=== PATIENT | male | born 1945 | race Caucasian/White ===

== ENCOUNTER 2017-09-15 14:29 | Emergency (ER) | payer SELFPAY ==
[~2017-09-15] VITALS: Ht 185.4 cm; Wt 88.5 kg
[~2017-09-15 14:29] MED LIST: ASCO500 PO; ASPI325EC PO; ASPI81EC; B-100 COMPLEX100 MG PO; CALCAVITD PO; CHLO25B PO; CLON1; CYCL10 PO; DOCU100 PO; FURO40 PO; GABA400 PO; GABA600 PO; HYDACE5325; HYDCHL12.5 PO; Hydrocodone-Ap1 EA20 PO; Hydrocodone-Ap1 EA23 PO; IBUP600 PO; LEVO750 PO; LEVSOD50 PO; Lopressor 50 mg50 MG PO; MORP15ER PO; MORP30ER PO; MORP60ER; Morphine Sulfat15 MG PO; Ms Contin30 MG PO; OLAN2.5; QUET200 PO; QUET300 PO; RANI150 PO; SILD50TA PO; THIA100 PO; TOCO1000 PO; VITB100; Ventolin5 MG/1 ML INH
== END 2017-09-15 16:36 | disposition home or self-care (01) ==
LOC: ER 14:29
DX: T84.021A Dislocation of internal left hip prosthesis, initial encounter (principal); Z96.642 Presence of left artificial hip joint; W01.0XXA Fall on same level from slipping, tripping and stumbling without subsequent striking against object, initial encounter; I48.91 Unspecified atrial fibrillation; J44.9 Chronic obstructive pulmonary disease, unspecified; I50.9 Heart failure, unspecified; E03.9 Hypothyroidism, unspecified; K21.9 Gastro-esophageal reflux disease without esophagitis; F43.10 Post-traumatic stress disorder, unspecified
CPT/HCPCS: 27250; 73501; 96361; 96374; 99152; 99283-25; J3010; J7030

== ENCOUNTER 2017-10-06 11:36 | Emergency (ER) | payer SELFPAY ==
[~2017-10-06] VITALS: Ht 182.9 cm; Wt 93.0 kg
== END 2017-10-06 14:39 | disposition home or self-care (01) ==
LOC: ER 11:36
DX: T84.021A Dislocation of internal left hip prosthesis, initial encounter (principal); I10 Essential (primary) hypertension; Z91.048 Other nonmedicinal substance allergy status; Z79.899 Other long term (current) drug therapy; Z79.82 Long term (current) use of aspirin; X50.1XXA Overexertion from prolonged static or awkward postures, initial encounter
CPT/HCPCS: 27250; 73501; 73502; 96374; 96375; 99152; 99284-25; J1170; J2405; J3010; J7030

== ENCOUNTER 2017-11-06 21:02 | Emergency (ER) | payer SELFPAY ==
[~2017-11-06] VITALS: Ht 182.9 cm; Wt 88.5 kg
== END 2017-11-06 23:34 | disposition home or self-care (01) ==
LOC: ER 21:02
DX: T84.021A Dislocation of internal left hip prosthesis, initial encounter (principal); I10 Essential (primary) hypertension; Z79.899 Other long term (current) drug therapy; Z79.51 Long term (current) use of inhaled steroids; Z91.048 Other nonmedicinal substance allergy status; Z79.82 Long term (current) use of aspirin
CPT/HCPCS: 27265; 36415; 73501; 73502; 96374; 96375; 99284-25; J1170; J1885; J3010

== ENCOUNTER 2019-08-21 16:03 | Emergency (ER) | payer OTHER ==
[~2019-08-21] VITALS: Ht 182.9 cm; Wt 90.7 kg
[~2019-08-21 16:03] MED LIST changes: +Norco 10-325 T1 EACH PO; +Prinivil10 MG
== END 2019-08-21 18:59 | disposition home or self-care (01) ==
LOC: ER 16:03
DX: M24.451 Recurrent dislocation, right hip (principal); I10 Essential (primary) hypertension; Z91.048 Other nonmedicinal substance allergy status; Z79.899 Other long term (current) drug therapy
CPT/HCPCS: 27250; 73501; 73502; 96374-59; 96376-59; 99152; 99284-25; J2270; J2704; J7030

== ENCOUNTER 2021-09-03 13:59 | Inpatient (IN) | payer OTHER ==
[~2021-09-03] VITALS: Ht 180.3 cm; Wt 79.4 kg
[~2021-09-03 13:59] MED LIST changes: -CALCAVITD PO; +CALCIUM 250-VI1 EAC1 PO; +LEVSOD100 PO; -LEVSOD50 PO; -MORP15ER PO; -Prinivil10 MG; +Prinivil10 MG PO
[2021-09-03 14:35] LABS: BASOPHILS ABSOLUTE AUTO 0.01 K/mm3 (0.00-0.23); BASOPHILS PERCENT AUTO 0 % (0-2); EOSINOPHILS PERCENT AUTO 0 % (0-6); Hematocrit 34.7 % (37.0-53.0); Hemoglobin 11.7 g/dL (13.5-17.5); IMMATURE GRAN ABSOLUTE AUTO 0.02 K/mm3 (0.00-0.10); IMMATURE GRAN PERCENT AUTO 0 % (0-1); LYMPHOCYTES ABSOLUTE AUTO 0.55 K/mm3 (0.84-5.20); LYMPHOCYTES PERCENT AUTO 10 % (21-46); MONOCYTES ABSOLUTE AUTO 0.39 K/mm3 (0.16-1.47); MONOCYTES PERCENT AUTO 7 % (4-13); Mean Corpuscular HGB 30.2 pg (26.0-34.0); Mean Corpuscular HGB Conc 33.7 g/dL (31.5-36.5); Mean Corpuscular Volume 90 fL (80-100); Mean Platelet Volume 9.3 fL (9.1-12.4); NEUTROPHILS ABSOLUTE AUTO 4.72 K/mm3 (1.96-9.15); NEUTROPHILS PERCENT AUTO 83 % (41-73); Platelet Count 143 K/mm3 (150-400); RDW Coefficient Variation 12.4 % (11.7-14.2); RDW Standard Deviation 40.8 fL (35.1-46.3); Red Blood Cell Count 3.87 M/mm3 (4.30-5.90); White Blood Cell Count 5.69 K/mm3 (4.00-11.30)
[2021-09-03 15:22] LABS: Bilirubin, Total 0.4 mg/dL (0.1-1.0); Bun/Creatinine Ratio 32.8 (12.0-20.0); Calcium, Blood 8.7 mg/dL (8.5-10.1); Creatinine, Blood 0.55 mg/dL (0.60-1.20); Globulin, Blood 2.9 g/dL (2.2-4.0); Potassium, Blood 4.1 mmol/L (3.5-5.5); Total Protein, Blood 5.9 g/dL (6.4-8.2)
[2021-09-04 06:13] LABS: BASOPHILS ABSOLUTE AUTO 0.01 K/mm3 (0.00-0.23); BASOPHILS PERCENT AUTO 0 % (0-2); EOSINOPHILS ABSOLUTE AUTO 0.03 K/mm3 (0.00-0.68); EOSINOPHILS PERCENT AUTO 0 % (0-6); Hemoglobin 12.1 g/dL (13.5-17.5); IMMATURE GRAN ABSOLUTE AUTO 0.03 K/mm3 (0.00-0.10); IMMATURE GRAN PERCENT AUTO 0 % (0-1); LYMPHOCYTES ABSOLUTE AUTO 0.62 K/mm3 (0.84-5.20); LYMPHOCYTES PERCENT AUTO 8 % (21-46); MONOCYTES ABSOLUTE AUTO 0.67 K/mm3 (0.16-1.47); MONOCYTES PERCENT AUTO 9 % (4-13); Mean Corpuscular HGB 30.1 pg (26.0-34.0); Mean Corpuscular HGB Conc 33.6 g/dL (31.5-36.5); Mean Corpuscular Volume 90 fL (80-100); Mean Platelet Volume 9.4 fL (9.1-12.4); NEUTROPHILS ABSOLUTE AUTO 6.11 K/mm3 (1.96-9.15); NEUTROPHILS PERCENT AUTO 82 % (41-73); Platelet Count 151 K/mm3 (150-400); RDW Coefficient Variation 12.4 % (11.7-14.2); Red Blood Cell Count 4.02 M/mm3 (4.30-5.90); White Blood Cell Count 7.47 K/mm3 (4.00-11.30)
[2021-09-04 06:21] LABS: Albumin, Blood 2.7 g/dL (3.4-5.0); Albumin/Globulin Ratio 0.9 (0.8-1.8); Bilirubin, Total 0.5 mg/dL (0.1-1.0); Calcium, Blood 8.4 mg/dL (8.5-10.1); Creatinine, Blood 0.57 mg/dL (0.60-1.20); Potassium, Blood 3.8 mmol/L (3.5-5.5); Total Protein, Blood 5.7 g/dL (6.4-8.2)
--- NOTE | 2021-09-04 10:12 | NUR ---
PT ARRIVED TO ROOM BY LUIS CARLOS FROM ED TO 343. SLIDE TRANSFERRED TO BED AND SETTLED IN. DRESSING INTACT TO R HIP. REPORTS SIGNIFICANT PAIN TO L ABDOMEN. STATES CHRONIC PAIN TO JOINTS AND BACK FROM MULTIPLE SURGERIES. HAS HAD NO BM SINCE ARRIVAL TO HOSPITAL.
--- NOTE | 2021-09-04 18:15 | NUR ---
SHIFT SUMMARY PT REPORTS POOR APPETITE AND NOT INTERESTED IN FOOD WHEN LUNCH ARRIVED. HAS HAD NO BM SINCE ARRIVAL TO FLOOR. REPORTS ONGOING L SIDE ABDOMENAL PAIN. REPORTS HE FEELS LIKE HE IS GETTING BETTER SLEEP NOW THAT HE IS HERE AND HAS BEEN SLEEPING ON AND OFF THROUGH THE DAY. SPOKE WITH GI OFFICE AND PT WAS NEVER SEEN IN ED BY GI NOR A CONSULT CALLED WHILE IN ED. HOSPITALIST AWARE THIS. PT HAS BEEN NOTIFIED WELL AND OK WITH NO PLAN FOR COLONOSCOPY IN NEXT FEW DAYS. STATES PAIN TO L ABDOMEN IS A CRAMPING PAIN. DRESSING CHANGED TO R HIP WITH NO REDNESS NOTED. BRUISING AND MILD SWELLING ONLY.
--- NOTE | 2021-09-05 04:41 | NUR ---
SHIFT SUMMARY A/OX4, SBA TO BSC/CHAIR. ABD SOFT, TENDER. C/O 09/20 PAIN, MEDICATED PER EMAR. NO BM THIS SHIFT. VSS, NO ACUTE CHANGES AT THIS TIME. BED IN LOWEST POSITION WITH CALL LIGHT IN REACH. WILL CONTINUE TO MONITOR AND REPORT TO ONCOMING RN.
[2021-09-05 08:19] LABS: BASOPHILS ABSOLUTE AUTO 0.02 K/mm3 (0.00-0.23); BASOPHILS PERCENT AUTO 0 % (0-2); EOSINOPHILS ABSOLUTE AUTO 0.11 K/mm3 (0.00-0.68); EOSINOPHILS PERCENT AUTO 2 % (0-6); Hematocrit 32.7 % (37.0-53.0); Hemoglobin 10.8 g/dL (13.5-17.5); IMMATURE GRAN ABSOLUTE AUTO 0.09 K/mm3 (0.00-0.10); IMMATURE GRAN PERCENT AUTO 1 % (0-1); LYMPHOCYTES ABSOLUTE AUTO 0.85 K/mm3 (0.84-5.20); LYMPHOCYTES PERCENT AUTO 11 % (21-46); MONOCYTES ABSOLUTE AUTO 0.55 K/mm3 (0.16-1.47); MONOCYTES PERCENT AUTO 7 % (4-13); Mean Corpuscular HGB 29.8 pg (26.0-34.0); Mean Corpuscular Volume 90 fL (80-100); Mean Platelet Volume 9.4 fL (9.1-12.4); NEUTROPHILS ABSOLUTE AUTO 5.89 K/mm3 (1.96-9.15); NEUTROPHILS PERCENT AUTO 78 % (41-73); Platelet Count 138 K/mm3 (150-400); RDW Coefficient Variation 12.6 % (11.7-14.2); RDW Standard Deviation 42.1 fL (35.1-46.3); Red Blood Cell Count 3.62 M/mm3 (4.30-5.90); White Blood Cell Count 7.51 K/mm3 (4.00-11.30)
[2021-09-05 08:27] LABS: Bun/Creatinine Ratio 18.7 (12.0-20.0); Calcium, Blood 8.4 mg/dL (8.5-10.1); Creatinine, Blood 0.64 mg/dL (0.60-1.20); Potassium, Blood 3.9 mmol/L (3.5-5.5)
[2021-09-05 16:15] LABS: Hematocrit 33.8 % (37.0-53.0); Hemoglobin 11.1 g/dL (13.5-17.5)
--- NOTE | 2021-09-05 17:29 | NUR ---
SHIFT SUMMARY- PT ALERT AND ORIENTED 1P SBA TO THE CHAIR. PT SAT IN THE CHAIR THIS AFTERNOON AND THEN CALLED IN A PANICK LATER STATING 9/10 PAIN IN HIS RIGHT KNEE. HE DESCRIBED A PAIN THAT SEEMED LIKE MUSCLE SPASAM, MEDICATED WITH FLEXERIL AND DILAUDID AFTER PT WAS ASSISTED BACK TO BED. PT STATED UPON FOLLOW UP THAT THE PAIN WAS IMPROVING. PT HAS AN ORDER FOR STL COLLECTION, HE HAS HAD NO BM TODAY, WHEN TRANSFERED TO THE BED FROM THE CHAIR, THE WEN HAD A BURGUNDY SMEAR IN IT. IS AWARE THESE ARE HAPPENING, NO SAMPLE ACHIEVED D/T NO ACTUAL STOOL. PT CURRENTLY IN BED, CALL LIGHT IN REACH IV ABX INFUSING THROUGH IV IN RIGHT NECK. PT DID NOT HAVE ANY ACUTE EVENTS T/O THE DAY. WILL CTM AND PASS ON TO NIGHT RN IN BEDSIDE REPORT. PT CURRENTLY ON A CLEAR LIQUID DIET, SEEMS TO BE TOLLERATING IT FAIRLY WELL.
--- NOTE | 2021-09-06 04:45 | NUR ---
SHIFT SUMMARY PT CONTINUES TO REPORT ABD DISCOMFORT AND PAIN TO R SHOULDER, HIP, AND KNEE. MEDICATED PER EMAR. DENIED ANY NAUSEA THIS EVENING. NO BOWEL MOVEMENT THIS SHIFT. VOIDING WELL, URINE DARK. PT SLEPT OFF AND ON THROUGHOUT THE NIGHT. REMAINED IN BED THROUGHOUT THE NIGHT. VITAL SIGNS STABLE. WILL CONTINUE TO MONITOR.
[2021-09-06 05:17] LABS: Hematocrit 28.2 % (37.0-53.0); Hemoglobin 9.6 g/dL (13.5-17.5); Mean Corpuscular HGB 30.4 pg (26.0-34.0); Mean Corpuscular Volume 89 fL (80-100); Mean Platelet Volume 9.6 fL (9.1-12.4); Platelet Count 142 K/mm3 (150-400); RDW Coefficient Variation 12.6 % (11.7-14.2); RDW Standard Deviation 42.3 fL (35.1-46.3); Red Blood Cell Count 3.16 M/mm3 (4.30-5.90); White Blood Cell Count 5.93 K/mm3 (4.00-11.30)
[2021-09-06 06:06] LABS: BAND PERCENT MAN 6 % (0-8); BASOPHILS PERCENT MAN 0 % (0-2); EOSINOPHILS ABSOLUTE MAN 0.05 K/mm3 (0.00-0.68); EOSINOPHILS PERCENT MAN 1 % (0-6); LYMPHOCYTES ABSOLUTE MAN 0.83 K/mm3 (0.84-5.20); LYMPHOCYTES PERCENT MAN 14 % (21-46); MONOCYTES ABSOLUTE MAN 0.17 K/mm3 (0.16-1.47); MONOCYTES PERCENT MAN 3 % (4-13); NEUTROPHILS ABSOLUTE MAN 4.86 K/mm3 (1.96-9.15); SEG NEUTROPHILS PERCENT MAN 76 % (41-73); TOTAL CELLS COUNTED 100
[2021-09-06 06:15] LABS: Bun/Creatinine Ratio 16.6 (12.0-20.0); Calcium, Blood 7.8 mg/dL (8.5-10.1); Creatinine, Blood 0.6 mg/dL (0.60-1.20); Potassium, Blood 3.9 mmol/L (3.5-5.5)
--- NOTE | 2021-09-06 08:44 | NUR ---
[facility] RE-FAXED FOR WEIGHT BEARING STATUS.
--- NOTE | 2021-09-06 17:15 | NUR ---
SHIFT SUMMARY- PT A/OX4, 1 ASSIST UP TO CHAIR/ BSC. PT REPORTS 9/10 PAIN TO LEFT ABD WELL CHRONIC PAIN TO SHOULDERS/HIPS HOWEVER PT HAS SLEPT ON AND OFF AND DOES NOT APPEAR TO BE IN ANY DISTRESS. PRN NORCO GIVEN AND LONG ACTING MORPHINE SCHEDULED TO TID. LS CLEAR, ON ROOM AIR. 1+ SWELLING TO BUE, ARMS ELEVATED ON PILLOWS AND APPEARS TO BE IMPROVED THIS EVENING. PT REPORT LEFT ABD PAIN, STATES NOT PASSING GAS BUT DID HAVE A LIQUID STOOL THIS AFTERNOON BUT WAS MIXED WITH URINE SO UNABLE TO SEND A STOOL SAMPLE. IV LEVSIN APPEARS TO BE HELPING WITH ABDOMINAL CRAMPING. PT CONTINUES TO CLEAR LIQUID DIET, POOR ORAL INTAKE. LR AT 75ML/HR INFUSING. AQUACEL DRESSING TO RIGHT HIP IN PLACE, C/D/I FROM RECENT HIP SURGERY. PER [facility] PT IS WEIGHT BEARING TOLERATED. POWERGLIDE PLACED TO AMBER. NO OTHER ACUTE CHANGES THIS SHIFT.
--- NOTE | 2021-09-07 04:21 | NUR ---
SHIFT SUMMARY PATIENT HAD NO ACUTE CHANGES. REPORTED ABDOMINAL CRAMPING X TWO AND NORCO GIVEN PER EMAR. IV LEVSIN 0.25MG CHANGED TO PO 0.[address] OTTO WITH PHARMACY REPORTING OUT OF IV FORM. GIVEN X ONE FOR ABDOMINAL CRAMPING. SCHEDULE MS CONTIN 30 MG FOR PAIN MANAGEMENT. POWERGLIDE AMBER INTACT. LR INFUSING AT 75mL/HR. IV ABX INFUSED. DENIES SOB AND N/V. BUE ELEVATED ON PILLOWS WITH 1+ EDEMA. VSS/AFEBRILE. CALL LIGHT IN REACH. BED IN LOWEST POSITION. WILL CONTINUE TO MONITOR UNTIL DAY SHIFT NURSE ASSUMES CARE.
[2021-09-07 05:56] LABS: BASOPHILS ABSOLUTE AUTO 0.01 K/mm3 (0.00-0.23); BASOPHILS PERCENT AUTO 0 % (0-2); EOSINOPHILS ABSOLUTE AUTO 0.18 K/mm3 (0.00-0.68); EOSINOPHILS PERCENT AUTO 4 % (0-6); Hematocrit 28.4 % (37.0-53.0); Hemoglobin 9.3 g/dL (13.5-17.5); IMMATURE GRAN ABSOLUTE AUTO 0.03 K/mm3 (0.00-0.10); IMMATURE GRAN PERCENT AUTO 1 % (0-1); LYMPHOCYTES ABSOLUTE AUTO 0.87 K/mm3 (0.84-5.20); LYMPHOCYTES PERCENT AUTO 17 % (21-46); MONOCYTES ABSOLUTE AUTO 0.37 K/mm3 (0.16-1.47); MONOCYTES PERCENT AUTO 7 % (4-13); Mean Corpuscular HGB 29.6 pg (26.0-34.0); Mean Corpuscular HGB Conc 32.7 g/dL (31.5-36.5); Mean Corpuscular Volume 90 fL (80-100); Mean Platelet Volume 9.3 fL (9.1-12.4); NEUTROPHILS ABSOLUTE AUTO 3.55 K/mm3 (1.96-9.15); NEUTROPHILS PERCENT AUTO 71 % (41-73); Platelet Count 163 K/mm3 (150-400); RDW Coefficient Variation 12.9 % (11.7-14.2); RDW Standard Deviation 42.5 fL (35.1-46.3); Red Blood Cell Count 3.14 M/mm3 (4.30-5.90); White Blood Cell Count 5.01 K/mm3 (4.00-11.30)
[2021-09-07 06:13] LABS: Bun/Creatinine Ratio 15.2 (12.0-20.0); Calcium, Blood 7.9 mg/dL (8.5-10.1); Creatinine, Blood 0.59 mg/dL (0.60-1.20); Potassium, Blood 3.5 mmol/L (3.5-5.5)
[2021-09-07] MEDS ORDERED: FURO40 PO (11:02)
[2021-09-07] MEDS ORDERED: Mucus Relief400 MG PO ×2 (11:03)
[2021-09-07] MEDS ORDERED: MULTI-VITAMIN1 EAC2 PO ×2 (11:41)
[2021-09-07 13:11] LABS: ANTIMYELOPEROXIDASE (MPO) ABS <0.2 units (0.0-0.9); ANTIPROTEINASE 3 (PR-3) ABS <0.2 units (0.0-0.9); ATYPICAL PANCA <1:20 titer (Neg:<1:20); CYTOPLASMIC (C-ANCA) <1:20 titer (Neg:<1:20); PERINUCLEAR (P-ANCA) <1:20 titer (Neg:<1:20)
--- NOTE | 2021-09-07 16:46 | NUR ---
SHIFT SUMMARY- PT A/O X4, SBA UP INTO CHAIR. PT REPORTS 7/10 LEFT ABDOMINAL PAIN WELL CHRONIC LEG, SHOULDER, KNEE PAIN. LS CLEAR, ON RA. HRR. PT TOLERATING FULL LIQUID DIET, PT TO ADVANCE TO SOFT DIET FOR BREAKFAST. PT REPORTS ABDOMINAL PAINFUL AND TENDER TO LEFT SIDE, PASSING GAS, NO N/V. NO BM'S TODAY. LEVSIN HELPING WITH ABDOMINAL CRAMPING. PT REFUSED THERAPY TODAY, AQUACEL DRESSING TO RIGHT HIP C/D/I. PT SLEEPS ON AND OFF T/O THE DAY BUT AWAKENS EASILY. NO OTHER ACUTE CHANGE THIS SHIFT. POSSIBLE D/C HOME TOMORROW.
--- NOTE | 2021-09-07 19:14 | NUR ---
PT REPORTED FEELING NAUSEOUS PRIOR TO EATING DINNER, PT DID EAT ALL OF HIS FULL LIQUID LUNCH. DR FALL NOTIFIED, PETER MALIN ORDERED AND PT PUT BACK ON FULL LIQUID DIET FOR BREAKFAST.
[2021-09-08 05:13] LABS: BASOPHILS ABSOLUTE AUTO 0.01 K/mm3 (0.00-0.23); BASOPHILS PERCENT AUTO 0 % (0-2); EOSINOPHILS ABSOLUTE AUTO 0.19 K/mm3 (0.00-0.68); EOSINOPHILS PERCENT AUTO 4 % (0-6); Hematocrit 28.9 % (37.0-53.0); Hemoglobin 9.4 g/dL (13.5-17.5); IMMATURE GRAN ABSOLUTE AUTO 0.08 K/mm3 (0.00-0.10); IMMATURE GRAN PERCENT AUTO 2 % (0-1); LYMPHOCYTES ABSOLUTE AUTO 0.82 K/mm3 (0.84-5.20); LYMPHOCYTES PERCENT AUTO 15 % (21-46); MONOCYTES ABSOLUTE AUTO 0.43 K/mm3 (0.16-1.47); MONOCYTES PERCENT AUTO 8 % (4-13); Mean Corpuscular HGB 29.6 pg (26.0-34.0); Mean Corpuscular HGB Conc 32.5 g/dL (31.5-36.5); Mean Corpuscular Volume 91 fL (80-100); Mean Platelet Volume 9.7 fL (9.1-12.4); NEUTROPHILS ABSOLUTE AUTO 3.78 K/mm3 (1.96-9.15); NEUTROPHILS PERCENT AUTO 71 % (41-73); Platelet Count 200 K/mm3 (150-400); RDW Coefficient Variation 12.6 % (11.7-14.2); RDW Standard Deviation 42.4 fL (35.1-46.3); Red Blood Cell Count 3.18 M/mm3 (4.30-5.90); White Blood Cell Count 5.31 K/mm3 (4.00-11.30)
--- NOTE | 2021-09-08 06:14 | NUR ---
SMOG TECHNICIAN SUMMARY ADMITTED FOR ENTEROCOLITIS. PT IS A FULL CODE. HE REPORTS CONTINUOUS LLQ PAIN, MORE LIKE CRAMPING. MEDICATED WITH LEVSIN X2, FLEXERIL X1, AND SCHEDULED MS CONTIN. PT REPORTS FEELING SOMEWHAT COMFORTABLE THIS MORNING. HE HAS BEEN USING THE URINAL INDEPENDENTLY. ABLE TO DRINK BUT WANTS TO TRY EATING SOMETHING SOLID FOR BREAKFAST. STILL RECEIVING IV ABX AND LR AT 75 ML/HR. NO OTHER CONCERNS.
[2021-09-08] MEDS ORDERED: MASOPHEN325 M3 PO ×2 (13:56)
[2021-09-08] MEDS ORDERED: Norco 5-325 Ta1 EACH PO ×2 (13:57)
[2021-09-08] MEDS ORDERED: AMOCLA500 PO ×2 (13:57)
[2021-09-08] MEDS ORDERED: EUTHYROX125 MCG PO ×2 (13:58)
[2021-09-08] MEDS ORDERED: HYOS.125 SL (13:58)
[2021-09-08] MEDS ORDERED: Prinivil10 MG PO (14:05)
[2021-09-08] MEDS ORDERED: METR500 ×2 (14:05)
[2021-09-08] MEDS ORDERED: VISBIOME 112.51 EACH PO (14:06)
[2021-09-08] MEDS ORDERED: MORP30ER PO ×2 (14:06)
--- NOTE | 2021-09-08 15:30 | NUR ---
This morning patient had soft food for breakfast, c/o staff that he did not tolerate advancing diet. Dieticin recommned downgrading patient to clears for lunch. Patient upset said that he never said that, and wanted to leave and be discharge. Patient unreceptive to education, MD said that CT was WNL. MD at bedside, updated patient & granddaughter. Reviewed discharge education, patient verbalized understanding. Vitals stable. Removed midline cath, site WNL catheter tip intact. Patient left unit at 1500.
== END 2021-09-08 14:51 | disposition home health service (06) | DRG 386 ==
LOC: ER 13:59 → ERHOLD 19:59 → MEDS 09-04 07:56
PROVIDERS: Emergency Medicine; Family Medicine; Internal Medicine; ADMIT Internal Medicine
DX: K51.00 Ulcerative (chronic) pancolitis without complications (principal); K92.2 Gastrointestinal hemorrhage, unspecified; I10 Essential (primary) hypertension; G89.4 Chronic pain syndrome; E03.9 Hypothyroidism, unspecified; D63.8 Anemia in other chronic diseases classified elsewhere; M54.50 Low back pain, unspecified; Z96.643 Presence of artificial hip joint, bilateral; Z87.828 Personal history of other (healed) physical injury and trauma; Z98.890 Other specified postprocedural states; Z91.048 Other nonmedicinal substance allergy status; Z79.899 Other long term (current) drug therapy; Z79.891 Long term (current) use of opiate analgesic; Z79.82 Long term (current) use of aspirin
CPT/HCPCS: 36415; 74177; 80048; 80053; 82272; 83516; 83520; 83605; 85014; 85018; 85025; 86037; 93005; 93010; 96365; 96374-59; 96375; 96376; 97110; 97116; 97163; 97530; 99285-25; A9270; C1751; G0378; J0696; J1170; J1980; J2270; J7040; J7120; Q9967

== ENCOUNTER 2021-09-10 00:08 | Inpatient (IN) | payer OTHER ==
[~2021-09-10] VITALS: Ht 177.8 cm; Wt 87.1 kg
[~2021-09-10 00:08] MED LIST changes: +AMOCLA500 PO; +EUTHYROX125 MCG PO; +HYOS.125 SL; +MASOPHEN325 M3 PO; +METR500; +MULTI-VITAMIN1 EAC2 PO; +Mucus Relief400 MG PO; +Norco 5-325 Ta1 EACH PO; +VISBIOME 112.51 EACH PO
[2021-09-10] MEDS ORDERED: MELATONIN5 M1 PO ×2 (05:16)
[2021-09-10 06:30] LABS: Bun/Creatinine Ratio 17.5 (12.0-20.0); Calcium, Blood 8.1 mg/dL (8.5-10.1); Creatinine, Blood 0.63 mg/dL (0.60-1.20); Potassium, Blood 4.1 mmol/L (3.5-5.5)
--- NOTE | 2021-09-10 19:23 | NUR ---
SHIFT SUMMARY: NO ACUTE EVENTS. C/O CHRONIC BACK, HIP, AND SHOULDER PAIN; ALSO HAVING ACUTE LLQ PAIN. MEDICATED PER EMAR, BUT HE STATES HIS PAIN NEVER GOES BELOW 7/10. LBM 09/08/21. IS NPO, TOLERATING ICE CHIPS, DENIES NAUSEA. HE DOES NOT LIKE THE L EJ IV SITE; ATTEMPTED TO PLACE PERIPHERAL IV, BUT UNABLE TO DO SO. THIS AUTHOR NOTIFIED DIAGRAM CLERK THAT HE MAY NEED POWERGLIDE PLACED. USING URINAL INDEPENDENTLY.
--- NOTE | 2021-09-11 05:27 | NUR ---
SHIFT SUMMARY: PT IS ALERT AND ORIENTED. PT IS CALM AND COOPERATIVE WITH CARE. PT CALLS APPROPRIATELY. PT IN ON BED REST, NOT OUT OF BED OVERNIGHT, USES THE URINAL INDEPENDENTLY. PT REPORTS CHRONIC PAIN ON SEVERAL OCCASIONS, MEDICATING PER EMAR. PT DENIES NAUSEA, VOMITING, AND SOB. PT SLEPT MUCH OF THE NIGHT WHEN NOT DISTURBED. NPO ORDERED, FLUIDS RUNNING ORDERED. NO ACUTE CHANGES OVERNIGHT. BED IN LOW POSITION, CALL LIGHT WITHIN REACH. WILL REPORT TO DAY NURSE.
[2021-09-11 11:24] LABS: BASOPHILS ABSOLUTE AUTO 0.01 K/mm3 (0.00-0.23); BASOPHILS PERCENT AUTO 0 % (0-2); EOSINOPHILS ABSOLUTE AUTO 0.15 K/mm3 (0.00-0.68); EOSINOPHILS PERCENT AUTO 2 % (0-6); Hematocrit 29.5 % (37.0-53.0); Hemoglobin 9.8 g/dL (13.5-17.5); IMMATURE GRAN ABSOLUTE AUTO 0.08 K/mm3 (0.00-0.10); IMMATURE GRAN PERCENT AUTO 1 % (0-1); LYMPHOCYTES ABSOLUTE AUTO 1.08 K/mm3 (0.84-5.20); LYMPHOCYTES PERCENT AUTO 17 % (21-46); MONOCYTES ABSOLUTE AUTO 0.48 K/mm3 (0.16-1.47); MONOCYTES PERCENT AUTO 8 % (4-13); Mean Corpuscular HGB Conc 33.2 g/dL (31.5-36.5); Mean Corpuscular Volume 90 fL (80-100); Mean Platelet Volume 9.2 fL (9.1-12.4); NEUTROPHILS PERCENT AUTO 71 % (41-73); Platelet Count 232 K/mm3 (150-400); RDW Coefficient Variation 12.6 % (11.7-14.2); RDW Standard Deviation 41.8 fL (35.1-46.3); Red Blood Cell Count 3.27 M/mm3 (4.30-5.90)
--- NOTE | 2021-09-11 18:35 | NUR ---
SHIFT SUMMARY PT A&O X 4. VSS. PAIN CONTROLLED WITH MEDS PER MD ORDERS. NPO AT START OF SHIFT. DIET ADVANCED TO CLR LIQS. PT TOLERATING WELL. PT UP TO THE CHAIR TODAY. PT PLEASANT AND COOPERATIVE. PLAN IS FOR DC HOME ONCE CLINICALLY STABLE.
--- NOTE | 2021-09-12 06:31 | NUR ---
SHIFT SUMMARY PATIENT ALERT AND ORIENTED. MEDICATED PER EMAR FOR PAIN. HAD NO COMPLAINTS OF SHORTNESS OF BREATH. NO ACUTE ISSUES NOTED OVERNIGHT. CALL LIGHT WITHIN REACH. REPORT GIVEN TO ONCOMING RN.
[2021-09-12] MEDS ORDERED: CIPR250 PO ×2 (13:39)
[2021-09-12] MEDS ORDERED: ONDA4ODT MM ×2 (13:42)
[2021-09-12] MEDS ORDERED: METR500 PO ×2 (13:42)
--- NOTE | 2021-09-12 14:01 | NUR ---
DC HOME PT DC'D HOME WITH HH. DC INSTRUCTIONS GIVEN TO PT. PT VERBALIZED GOOD UNDERSTANDING. DC MED SCRIPTS FAXED TO PREFERRED PHARM. PIV DC'D WITH CATH TIP INTACT. NO REDNESS OR SWELLING NOTED AT SITE. PT TO PV VIA W/C. DTR TO DRIVE PT HOME.
== END 2021-09-12 15:12 | disposition home or self-care (01) | DRG 387 ==
LOC: ER 00:08 → ERHOLD 00:09 → MEDS 08:44
PROVIDERS: Student in an Organized Health Care Education/Training Program; ADMIT Internal Medicine
DX: K51.00 Ulcerative (chronic) pancolitis without complications (principal); D64.9 Anemia, unspecified; G89.29 Other chronic pain; I10 Essential (primary) hypertension; E03.9 Hypothyroidism, unspecified; M54.50 Low back pain, unspecified; Z87.828 Personal history of other (healed) physical injury and trauma; Z98.890 Other specified postprocedural states; Z96.643 Presence of artificial hip joint, bilateral; Z91.048 Other nonmedicinal substance allergy status; Z79.899 Other long term (current) drug therapy; Z79.811 Long term (current) use of aromatase inhibitors; Z79.891 Long term (current) use of opiate analgesic
CPT/HCPCS: 74177; 80048; 82947; 85025; 93005; 93010; 96366; 96372; 96374-59; 96375; 99285-25; A9270; G0378; J0696; J0744; J1650; J3010; J7120; Q9967

== ENCOUNTER 2021-10-14 12:26 | Emergency (ER) | payer OTHER ==
[~2021-10-14] VITALS: Ht 182.9 cm; Wt 79.4 kg
[~2021-10-14 12:26] MED LIST changes: +CIPR250 PO; +MELATONIN5 M1 PO; +METR500 PO; +ONDA4ODT MM
[2021-10-14] MEDS ORDERED: Norco 5-325 Ta1 EACH PO (16:23)
== END 2021-10-14 16:35 | disposition home or self-care (01) ==
LOC: ER 12:26
DX: M97.02XA Periprosthetic fracture around internal prosthetic left hip joint, initial encounter (principal); W18.30XA Fall on same level, unspecified, initial encounter; I10 Essential (primary) hypertension; Z79.899 Other long term (current) drug therapy; Z96.643 Presence of artificial hip joint, bilateral
CPT/HCPCS: 73502; 73700; 93971

== ENCOUNTER 2021-12-22 08:33 | Emergency (ER) | payer OTHER ==
[~2021-12-22] VITALS: Ht 182.9 cm; Wt 79.4 kg
[2021-12-22] MEDS ORDERED: GABA300 PO (08:46)
[2021-12-22 09:50] LABS: BASOPHILS ABSOLUTE AUTO 0.02 K/mm3 (0.00-0.23); BASOPHILS PERCENT AUTO 1 % (0-2); EOSINOPHILS PERCENT AUTO 7 % (0-6); Hematocrit 29.5 % (37.0-53.0); Hemoglobin 9.1 g/dL (13.5-17.5); IMMATURE GRAN ABSOLUTE AUTO 0.01 K/mm3 (0.00-0.10); IMMATURE GRAN PERCENT AUTO 0 % (0-1); LYMPHOCYTES PERCENT AUTO 30 % (21-46); MONOCYTES ABSOLUTE AUTO 0.21 K/mm3 (0.16-1.47); MONOCYTES PERCENT AUTO 7 % (4-13); Mean Corpuscular HGB 29.3 pg (26.0-34.0); Mean Corpuscular HGB Conc 30.8 g/dL (31.5-36.5); Mean Corpuscular Volume 95 fL (80-100); Mean Platelet Volume 9.1 fL (9.1-12.4); NEUTROPHILS ABSOLUTE AUTO 1.65 K/mm3 (1.96-9.15); NEUTROPHILS PERCENT AUTO 55 % (41-73); Platelet Count 110 K/mm3 (150-400); RDW Standard Deviation 48.5 fL (35.1-46.3); Red Blood Cell Count 3.11 M/mm3 (4.30-5.90); White Blood Cell Count 2.99 K/mm3 (4.00-11.30)
[2021-12-22 09:57] LABS: Albumin, Blood 2.4 g/dL (3.4-5.0); Bilirubin, Total 0.2 mg/dL (0.1-1.0); Bun/Creatinine Ratio 35.6 (12.0-20.0); Calcium, Blood 7.9 mg/dL (8.5-10.1); Creatinine, Blood 0.48 mg/dL (0.60-1.20); Globulin, Blood 2.4 g/dL (2.2-4.0); Potassium, Blood 4.3 mmol/L (3.5-5.5); Total Protein, Blood 4.8 g/dL (6.4-8.2)
[2021-12-22 11:07] LABS: Source, Urine Clean Catch
[2021-12-22 11:52] LABS: Appearance, Urine Clear (Clear); Bilirubin, Urine Neg (Neg); Blood, Urine 2+ (Neg); Color, Urine Yellow (P-Yellow); Glucose Qualitative, Urine Neg (Neg); Ketones, Urine Neg (Neg); Leukocyte Esterase, Urine Neg (Neg); Nitrite, Urine Neg (Neg); Protein, Urine Neg (Neg); Specific Gravity, Urine 1.015 (1.003-1.022); Urobilinogen, Urine NORM (Normal)
[2021-12-22 12:21] LABS: Bacteria Few /hpf; Squamous Epithelial Cells Few /hpf (Few)
[2021-12-22] MEDS ORDERED: Percocet 5-3251 EACH PO (14:32)
== END 2021-12-22 14:40 | disposition home or self-care (01) ==
LOC: ER 08:33
PROVIDERS: Physician Assistant
DX: N13.2 Hydronephrosis with renal and ureteral calculous obstruction (principal); I10 Essential (primary) hypertension; Z79.899 Other long term (current) drug therapy
CPT/HCPCS: 74177; 80053; 81001; 83690; 85025; J7030; Q9967

== ENCOUNTER 2022-07-26 19:53 | Inpatient (IN) | payer OTHER ==
[~2022-07-26] VITALS: Ht 182.9 cm; Wt 89.5 kg
[~2022-07-26 19:53] MED LIST changes: +GABA300 PO; +Percocet 5-3251 EACH PO
[2022-07-26 20:24] LABS: BASOPHILS ABSOLUTE AUTO 0.02 K/mm3 (0.00-0.23); BASOPHILS PERCENT AUTO 1 % (0-2); EOSINOPHILS ABSOLUTE AUTO 0.13 K/mm3 (0.00-0.68); EOSINOPHILS PERCENT AUTO 3 % (0-6); Hematocrit 40.2 % (37.0-53.0); IMMATURE GRAN ABSOLUTE AUTO 0.01 K/mm3 (0.00-0.10); IMMATURE GRAN PERCENT AUTO 0 % (0-1); LYMPHOCYTES ABSOLUTE AUTO 1.44 K/mm3 (0.84-5.20); LYMPHOCYTES PERCENT AUTO 35 % (21-46); MONOCYTES ABSOLUTE AUTO 0.26 K/mm3 (0.16-1.47); MONOCYTES PERCENT AUTO 6 % (4-13); Mean Corpuscular HGB Conc 32.3 g/dL (31.5-36.5); Mean Corpuscular Volume 90 fL (80-100); Mean Platelet Volume 9.3 fL (9.1-12.4); NEUTROPHILS ABSOLUTE AUTO 2.21 K/mm3 (1.96-9.15); NEUTROPHILS PERCENT AUTO 54 % (41-73); Platelet Count 144 K/mm3 (150-400); Red Blood Cell Count 4.48 M/mm3 (4.30-5.90); White Blood Cell Count 4.07 K/mm3 (4.00-11.30)
[2022-07-26 20:46] LABS: Albumin, Blood 3.8 g/dL (3.4-5.0); Albumin/Globulin Ratio 1.2 (0.8-1.8); Bilirubin, Total 0.5 mg/dL (0.1-1.0); Bun/Creatinine Ratio 29.3 (12.0-20.0); Calcium, Blood 8.9 mg/dL (8.5-10.1); Creatinine, Blood 0.92 mg/dL (0.60-1.20); Globulin, Blood 3.2 g/dL (2.2-4.0); Potassium, Blood 3.8 mmol/L (3.5-5.5)
[2022-07-26 23:32] LABS: Influenza A, PCR NEGATIVE (NEGATIVE); Influenza B, PCR NEGATIVE (NEGATIVE); Resp Syncytial Virus, PCR NEGATIVE (NEGATIVE); SARS-Cov-2 (COVID-19) PCR, MMC NEGATIVE (NEGATIVE)
[2022-07-27] VITALS (7 sets, daily range): BP systolic 109–144; BP diastolic 77–107
[2022-07-27] MEDS ORDERED: HYDACE10B PO (01:21)
[2022-07-27] MEDS ORDERED: MORP30ER PO (01:22)
[2022-07-27 04:27] LABS: BASOPHILS ABSOLUTE AUTO 0.02 K/mm3 (0.00-0.23); BASOPHILS PERCENT AUTO 1 % (0-2); EOSINOPHILS ABSOLUTE AUTO 0.16 K/mm3 (0.00-0.68); EOSINOPHILS PERCENT AUTO 5 % (0-6); Hematocrit 35.4 % (37.0-53.0); Hemoglobin 11.5 g/dL (13.5-17.5); IMMATURE GRAN ABSOLUTE AUTO 0.01 K/mm3 (0.00-0.10); IMMATURE GRAN PERCENT AUTO 0 % (0-1); LYMPHOCYTES PERCENT AUTO 35 % (21-46); MONOCYTES ABSOLUTE AUTO 0.26 K/mm3 (0.16-1.47); MONOCYTES PERCENT AUTO 8 % (4-13); Mean Corpuscular HGB Conc 32.5 g/dL (31.5-36.5); Mean Corpuscular Volume 89 fL (80-100); Mean Platelet Volume 10.1 fL (9.1-12.4); NEUTROPHILS ABSOLUTE AUTO 1.76 K/mm3 (1.96-9.15); NEUTROPHILS PERCENT AUTO 52 % (41-73); Platelet Count 151 K/mm3 (150-400); RDW Coefficient Variation 14.1 % (11.7-14.2); RDW Standard Deviation 46.3 fL (35.1-46.3); Red Blood Cell Count 3.97 M/mm3 (4.30-5.90); White Blood Cell Count 3.41 K/mm3 (4.00-11.30)
[2022-07-27 04:49] LABS: Albumin, Blood 3.7 g/dL (3.4-5.0); Albumin/Globulin Ratio 1.4 (0.8-1.8); Bilirubin, Total 0.4 mg/dL (0.1-1.0); Bun/Creatinine Ratio 30.2 (12.0-20.0); Calcium, Blood 8.7 mg/dL (8.5-10.1); Creatinine, Blood 1.06 mg/dL (0.60-1.20); Globulin, Blood 2.7 g/dL (2.2-4.0); Potassium, Blood 3.3 mmol/L (3.5-5.5); Total Protein, Blood 6.4 g/dL (6.4-8.2)
--- NOTE | 2022-07-27 05:54 | NUR ---
SHIFT SUMMARY ASSUMED CARE OF PT AT 0110. PT IS A/OX4. HEART SOUNDS IRREGULAR. WHEN PT WAS MOVING AROUND OR DOING ACTIVITIES, HR WAS IN THE 120-130BPM BUT AT REST HR REMAINED IN THE 100-110 BPM. LUNG SOUNDS HAVE CRACKLES AT THE BASES. PT C/O SOB WITH ACTIVITY BUT SATURATIONS ARE ABOVE 95%. PT USED URINAL AT BEDSIDE. PT SKIN IS VERY TIGHT AND EDEMADOUS. PT STATES HE GAINED LOTS OF WATER WEIGHT THE PAST COUPLE MONTHS. PT HAS A WEEPING WOUND ON L RICHARDSON WHICH IS IS WORRIED ABOUT. PT STATES ONLY TAKING PAIN MEDICATIONS FOR PERSCRIPTIONS AND NOTHING ELSE.
--- NOTE | 2022-07-27 11:32 | NUR ---
AT 1100, PT CALLED THIS RN WITH REPORT IF INCREASED SOB. HOB ELEVATED WHICH DID NOT RENDER ANY RELIEF. RECLINER PROVIDED FOR PT. PT ABLE TO TRANSFER FROM BED TO RECLINER ON HIS OWN, NO INCREASE OF SOB DURING TRANSFER, SATS MAINTAINED IN THE 90'S. PT REPORTED NO RELIEF OF SOB WHEN SITTING IN RECLINER. PT INSTRUCTED TO SIT IN TRIPOD POSITION ON HIS TABLE, LITTLE RELIEF REPORTED. PT BP TAKEN, 109/77 MAP OF 89. PT REQUESTED OXYGEN, 2L NC PROVIDED. NOTIFIED OF INCIDENT, 02 THERAPY ORDERED AND BRONCHODILATOR THERAPY ORDERED. RT OUTSIDE OF PT ROOM AND UPDATED ON PT SITUATION.
[2022-07-27] MEDS ORDERED: CALCIUM 250-D1 EAC1 PO (14:46)
[2022-07-27] MEDS ORDERED: GUAI200 PO (14:47)
--- NOTE | 2022-07-27 15:42 | NUR ---
UPDATE PT'S VISITOR IN ROOM ASKED THIS RN TO HELP PT AT 1525. THIS RN ENTERED PT ROOM, PT SITTING IN RECLINER STATING "I FEEL LIKE I CANNOT BREATH." VITALS TAKEN SHOWING BP OF 116/78 WITH MAP OF 90, HR OF 127, AND 02 SATS AT 100% ON 2L NC. PT RESPIRATIONS OF 20BPM. PT LUNGS SOUNDS CLEAR T/O. PT SKIN CLAMMY.PT LEANED FORWARTD IN RECLINER IN A SEMI-TRIPOD POSITION. SOB SEEMED TO GET BETTER AFTER SITTING IN THIS POSITON AND TAKING DEEP BREATHS DURING AUSCLTATION OF LUNGS. PT REPORTED "THAT CAME ON SO FAST. I WAS FEELING HOT AND HAD TO GET UP TO THE CHAIR SO I COULD COOL DOWN." PT INSTRUCTED THAT IF HE IS FEELING SOB, NOT TO STAND OR TRY TO GET TO THE CHAIR. INSTEAD SIT AT EDGE OF BED AND GO TO THE TRIPOD POSITION ON THE TABLE. PT AGREED TO INSTRUCTION.
--- NOTE | 2022-07-27 18:12 | NUR ---
SHIFT SUMMARY PT A/OX4 AND COOPERATIVE OF CARE. PT VSS THROUGHOUT SHIFT WITH 02 SATS IN 90'S ON RA-2L NC. PT PUT ON 2L NC AFTER EPISODE OF SOB, SEE PREVIOUS NOTES. SOB REPORTED TO "COME OUT OF NO WHERE." PT RECIEVING IV LASIX PER ORDER, ALISHA HOSE IN PLACE ON PT FEET. NO REPORT OF CHEST PAIN/PRESSURE THROUGHOUT SHIFT. PT USING URINAL AT BEDSIDE AND FROM RECLINER. PT CALLING APPROPIATE. PT ON 2000ML FLUID RESTRICTION, SEE ORDERS.
[2022-07-28] VITALS: BP 116/74
[2022-07-28 05:09] VITALS: BP 140/101
[2022-07-28 05:50] VITALS: BP 135/97
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
[2022-07-28 06:07] LABS: Albumin, Blood 3.7 g/dL (3.4-5.0); Albumin/Globulin Ratio 1.2 (0.8-1.8); Bilirubin, Total 0.8 mg/dL (0.1-1.0); Bun/Creatinine Ratio 35.9 (12.0-20.0); Calcium, Blood 9.1 mg/dL (8.5-10.1); Creatinine, Blood 0.95 mg/dL (0.60-1.20); Globulin, Blood 3.1 g/dL (2.2-4.0); Potassium, Blood 4.4 mmol/L (3.5-5.5); Total Protein, Blood 6.8 g/dL (6.4-8.2)
[2022-07-28 08:29] VITALS: BP 142/108
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
--- NOTE | 2022-07-28 09:23 | NUR ---
0905 - DR. ORDONEZ IN ROOM, PT DENIES ANY SI BUT ENDORSES HOMICIDAL THOUGHTS TOWARDS GIRLFRIEND. PT REFUSING BOTH TELEPSYCH CONSULT OR MANAGEMENT PSYCHOLOGIST. MD AWARE. PLAN FOR 2 MD HOLD IF PT ELECTS TO LEAVE AMA, CURRENTLY COOPERATIVE IN CARE AND PLEASANT. UPDATED COMMERCIAL LENDING ASSISTANT AND DYE MAKER NAYAN
[2022-07-28 12:14] VITALS: BP 136/77
--- NOTE | 2022-07-28 12:43 | NUR ---
PT AGREEABLE THIS AFTERNNON AFTER NAKUL DISCUSSION REGARDING CONCERNS AND VERBALIZATIONS OF HARM TO OTHERS (GIRLFRIEND) AWAITING AVAILABILITY OF MACHINE VIA ICU OR ED.
--- NOTE | 2022-07-28 17:37 | NUR ---
ASSUMED CARE OF PT APROX 1330 FROM CHERELLE SIEGEL. PT CALM AND COOPERATIVE T/O THE AFTERNOON, APPEARS TO BE SLEEPING OFF AND ON. HR 80-90s AFLUTTER ON TELE. THIS RN ENTERED PT ROOM WITH COMPUTER FOR TELEPHYSCH CONSULT AND EXPLAINED PROCEDURE TO PT. PT REFUSED TELEPSYCH AT THIS TIME. THIS RN EXPLAINED TO PT NEED FOR CONSULTATION D/T HOMICIDAL STATEMENTS PT MADE THIS AM. PT STATES "I WILL SAY IT WHERE EVER I WANT." PT DID NOT CONFIRM OR DENY HOMICIAL INTENTIONS AT THIS TIME. DR ORDONEZ NOTIFIED OF PT'S REFUSAL, PT IS NOT ON A 2MD HOLD AT THIS TIME. NO ACUTE CHANGES IN MEDICAL CONDITION SINCE ASSUMING CARE. PT IS ALERT AND ABLE TO USE CALL LIGHT FOR NEEDS. CALL LIGHT IN REACH, WILL CONTINUE TO MONITOR AND GIVE REPORT TO NOC SHIFT RN.
[2022-07-28 19:49] VITALS: BP 119/83
[2022-07-29 03:50] LABS: BASOPHILS ABSOLUTE AUTO 0.02 K/mm3 (0.00-0.23); BASOPHILS PERCENT AUTO 0 % (0-2); EOSINOPHILS ABSOLUTE AUTO 0.18 K/mm3 (0.00-0.68); EOSINOPHILS PERCENT AUTO 4 % (0-6); Hematocrit 39.8 % (37.0-53.0); IMMATURE GRAN ABSOLUTE AUTO 0.01 K/mm3 (0.00-0.10); IMMATURE GRAN PERCENT AUTO 0 % (0-1); LYMPHOCYTES ABSOLUTE AUTO 1.78 K/mm3 (0.84-5.20); LYMPHOCYTES PERCENT AUTO 35 % (21-46); MONOCYTES PERCENT AUTO 10 % (4-13); Mean Corpuscular HGB 29.1 pg (26.0-34.0); Mean Corpuscular HGB Conc 32.7 g/dL (31.5-36.5); Mean Corpuscular Volume 89 fL (80-100); Mean Platelet Volume 10.1 fL (9.1-12.4); NEUTROPHILS ABSOLUTE AUTO 2.66 K/mm3 (1.96-9.15); NEUTROPHILS PERCENT AUTO 52 % (41-73); Platelet Count 146 K/mm3 (150-400); RDW Coefficient Variation 14.2 % (11.7-14.2); Red Blood Cell Count 4.47 M/mm3 (4.30-5.90); White Blood Cell Count 5.15 K/mm3 (4.00-11.30)
[2022-07-29 04:08] LABS: Albumin, Blood 3.5 g/dL (3.4-5.0); Albumin/Globulin Ratio 1.1 (0.8-1.8); Bilirubin, Total 0.5 mg/dL (0.1-1.0); Bun/Creatinine Ratio 37.9 (12.0-20.0); Creatinine, Blood 0.85 mg/dL (0.60-1.20); Globulin, Blood 3.2 g/dL (2.2-4.0); Potassium, Blood 4.1 mmol/L (3.5-5.5); Total Protein, Blood 6.7 g/dL (6.4-8.2)
[2022-07-29 04:29] VITALS: BP 132/93
--- NOTE | 2022-07-29 06:17 | NUR ---
SHIFT SUMMARY PATIENT ALERT AND ORIENTED, ABLE TO MAKE NEEDS KNOWN TO STAFF. PATIENT CALM AND COOPERATIVE DURING THE NIGHT BUT DECLINES SOME CARE AT TIMES. VITALS STABLE, PATIENT ON 2L NC WITH O2 SAT >92%. USING URINAL INDEPENDENTLY WITH ADEQUATE OUTPUT. PATIENT ABLE TO GET GOOD AMOUNT OF SLEEP THIS SHIFT, NO COMPLAINTS OF PAIN OR CHEST PAIN. NO OTHER CHANGES, WILL REPORT TO DAY SHIFT RN.
[2022-07-29 08:59] VITALS: BP 160/85
--- NOTE | 2022-07-29 17:37 | NUR ---
ASSUMED CARE OF PT 0700 THIS AM. NO ACUTE CHANGES T/O THE SHIFT. PT HAS NOT MADE ANY SI/HI COMMENTS TO THIS RN TODAY. RESPIRATORY STATUS IMPROVED, PT NOW ON RA. EDEMA APPEARS IMPROVED. PT IS UNHAPPY WITH HIS FLUID RESTRICTION AND STATES "I WILL JUST DRINK WHATEVER I WANT WHEN I GET HOME." PT HAS BEEN COOPERATIVE WITH CARE OTHERWISE. PT IS ABLE TO USE CALL LIGHT FOR NEEDS, CALL LIGHT IN REACH, WILL CONTINUE TO MONITOR AND GIVE REPORT TO NOC SHIFT RN.
[2022-07-29 20:24] VITALS: BP 151/69
--- NOTE | 2022-07-29 22:10 | NUR ---
UPDATE PATIENT'S SIGNIFICANT OTHER REMAINS AT BEDSIDE. PATIENT DRINKING OUT OF SIGNIFICANT OTHER'S CUP. PATIENT EDUCATED ON IMPORTANCE OF CONTINUING FLUID RESTRICTION AND ONLY DRINKING FLUIDS THAT HOSPITAL STAFF CAN MONITOR. PATIENT AGITATED BUT AGREEABLE. PATIENT PROVIDED WITH FRESH ICE WATER FOR REMAINDER OF PO INTAKE FOR NOC SHIFT.
[2022-07-30 04:07] VITALS: BP 135/87
[2022-07-30 04:28] LABS: Alanine Aminotransfer (ALT/SGP 65 U/L (12-78); Albumin, Blood 3.4 g/dL (3.4-5.0); Albumin/Globulin Ratio 1.2 (0.8-1.8); Alk Phos 160 U/L (50-136); Anion Gap 5 mmol/L (6-16); Aspartate Aminotrans (AST/SGOT 37 U/L (12-37); Bilirubin, Total 0.4 mg/dL (0.1-1.0); Blood Urea Nitrogen 37 mg/dL (8-24); Bun/Creatinine Ratio 37.2 (12.0-20.0); CO2, Blood 28 mmol/L (21-32); Chloride, Blood 107 mmol/L (98-108); Creatinine, Blood 0.99 mg/dL (0.60-1.20); Globulin, Blood 2.9 g/dL (2.2-4.0); Glomerular Filtration Rate 78 (60-); Glucose, Blood 143 mg/dL (70-99); Phosphorus, Blood 4.2 mg/dL (2.5-4.9); Sodium, Blood 140 mmol/L (136-145); Total Protein, Blood 6.3 g/dL (6.4-8.2)
--- NOTE | 2022-07-30 06:13 | NUR ---
SHIFT SUMMARY MED TELE STATUS PATIENT ALERT AND ORIENTED, EASILY AGITATED, ABLE TO MAKE NEEDS KNOWN TO STAFF. PATIENT DID NOT STATE ANY HOMICIDAL IDEATIONS TO THIS RN THIS SHIFT, AWAITING PSYCH CONSULT. VITALS STABLE, PATIENT REMAINED ON RA T/O NIGHT WITH O2 SAT >90%. PATIENT UPSET ABOUT FLUID RESTRICTION, SEE PREVIOUS NOTE, EDUCATION PROVIDED. USING URINAL INDEPENDENTLY WITH ADEQUATE OUTPUT. NO OTHER SIGNIFICANT CHANGES, WILL REPORT TO DAY SHIFT RN.
[2022-07-30 07:33] VITALS: BP 138/78
[2022-07-30 16:29] VITALS: BP 147/77
[2022-07-30 17:23] VITALS: BP 168/93
--- NOTE | 2022-07-30 18:34 | NUR ---
SUMMARY- NO ACUTE EVENTS SINCE PT WAS TRANSFERRED TO MEDICAL FLOOR. PT IS INDEPENDENT IN ROOM. AAOX4.
[2022-07-30 19:38] VITALS: BP 136/80
--- NOTE | 2022-07-31 04:28 | NUR ---
SHIFT SUMMARY ADMITTED FOR SOB/CHF EXACERBATION. FULL CODE. PT IS EAGER TO DC HOME SOON POSSIBLE. TELEMETRY: AFLUTTER @ 77 BPM. PT IS ON ELIQUIS. HE IS INDEPENDENT AND CONTINENT. ON REGULAR DIET. ON RA. WE ARE DIURESING HIM. CARDIOLOGY CONSULT IS DR. ROCA. PSYCHOLOGY CONSULT IS DR. ARAUJO. 2 L FLUID RESTRICTION.
[2022-07-31 05:22] VITALS: BP 151/97
[2022-07-31 07:12] VITALS: BP 144/94
[2022-07-31] MEDS ORDERED: ELIQUIS5 M2 PO (15:15)
[2022-07-31] MEDS ORDERED: Prinivil10 MG PO (15:15)
[2022-07-31] MEDS ORDERED: METO25 PO (15:17)
[2022-07-31] MEDS ORDERED: FURO40 PO (15:18)
--- NOTE | 2022-07-31 15:48 | NUR ---
DISCHARGE PT A&OX4, GIRLFRIEND PRESENT AND PROVIDING TRANSPORT. DR. MATTHEW CLEARED PT FOR DC. TOLERATING PO INTAKE WELL, TELE DC'ED. IND IN ROOM. WC ESCORT TO [facility]. MEDS FAXED TO [facility].
== END 2022-07-31 15:45 | disposition home or self-care (01) | DRG 291 ==
LOC: ER 19:53 → PCU 07-27 00:49 → MEDS 07-27 00:49 → PCU 07-27 01:02 → MEDS 07-30 17:15 → ENPENDDIS 07-31 14:58 → MEDS 07-31 15:45
PROVIDERS: Emergency Medicine; Family Medicine; ADMIT Internal Medicine
DX: I11.0 Hypertensive heart disease with heart failure (principal); I50.43 Acute on chronic combined systolic (congestive) and diastolic (congestive) heart failure; I48.92 Unspecified atrial flutter; I42.0 Dilated cardiomyopathy; I48.91 Unspecified atrial fibrillation; D64.9 Anemia, unspecified; D69.6 Thrombocytopenia, unspecified; S80.812A Abrasion, left lower leg, initial encounter; X58.XXXA Exposure to other specified factors, initial encounter; F12.90 Cannabis use, unspecified, uncomplicated; G89.29 Other chronic pain; D72.819 Decreased white blood cell count, unspecified; E87.6 Hypokalemia; R45.850 Homicidal ideations; R79.89 Other specified abnormal findings of blood chemistry; I08.0 Rheumatic disorders of both mitral and aortic valves; Z20.822 Contact with and (suspected) exposure to COVID-19; M54.50 Low back pain, unspecified; Z79.891 Long term (current) use of opiate analgesic; Z79.811 Long term (current) use of aromatase inhibitors; Z79.899 Other long term (current) drug therapy; Z96.643 Presence of artificial hip joint, bilateral; Z98.890 Other specified postprocedural states; Z99.81 Dependence on supplemental oxygen
CPT/HCPCS: 0241U; 36415; 71045; 80053; 80069; 82947; 83880; 84100; 84484; 85025; 93005; 93010; 94760; 96365; 96367; 96375; 99285-25; A9270; C8929; J1650; J1940; P9047; Q9957

== ENCOUNTER 2022-10-01 16:41 | Observation (INO) | payer OTHER ==
[~2022-10-01] VITALS: Ht 185.4 cm; Wt 86.2 kg
[~2022-10-01 16:41] MED LIST changes: +CALCIUM 250-D1 EAC1 PO; +ELIQUIS5 M2 PO; +GUAI200 PO; +HYDACE10B PO; +METO25 PO; +SPIR25 PO
[2022-10-01] MEDS ORDERED: GUAI200 PO (17:04)
[2022-10-01 17:07] LABS: BASOPHILS ABSOLUTE AUTO 0.03 K/mm3 (0.00-0.23); BASOPHILS PERCENT AUTO 1 % (0-2); EOSINOPHILS PERCENT AUTO 3 % (0-6); Hematocrit 41.6 % (37.0-53.0); Hemoglobin 13.8 g/dL (13.5-17.5); IMMATURE GRAN PERCENT AUTO 0 % (0-1); LYMPHOCYTES ABSOLUTE AUTO 1.19 K/mm3 (0.84-5.20); LYMPHOCYTES PERCENT AUTO 33 % (21-46); MONOCYTES ABSOLUTE AUTO 0.36 K/mm3 (0.16-1.47); MONOCYTES PERCENT AUTO 10 % (4-13); Mean Corpuscular HGB 29.3 pg (26.0-34.0); Mean Corpuscular HGB Conc 33.2 g/dL (31.5-36.5); Mean Corpuscular Volume 88 fL (80-100); Mean Platelet Volume 9.4 fL (9.1-12.4); NEUTROPHILS ABSOLUTE AUTO 1.88 K/mm3 (1.96-9.15); NEUTROPHILS PERCENT AUTO 53 % (41-73); Platelet Count 118 K/mm3 (150-400); RDW Coefficient Variation 14.1 % (11.7-14.2); RDW Standard Deviation 45.7 fL (35.1-46.3); Red Blood Cell Count 4.71 M/mm3 (4.30-5.90); White Blood Cell Count 3.56 K/mm3 (4.00-11.30)
[2022-10-01 17:33] LABS: Albumin, Blood 3.8 g/dL (3.4-5.0); Albumin/Globulin Ratio 1.2 (0.8-1.8); Bilirubin, Total 1.4 mg/dL (0.1-1.0); Bun/Creatinine Ratio 24.4 (12.0-20.0); Calcium, Blood 9.3 mg/dL (8.5-10.1); Creatinine, Blood 0.9 mg/dL (0.60-1.20); Globulin, Blood 3.3 g/dL (2.2-4.0); Potassium, Blood 4.8 mmol/L (3.5-5.5); Total Protein, Blood 7.1 g/dL (6.4-8.2)
[2022-10-01 21:46] VITALS: BP 122/78
[2022-10-02 01:43] VITALS: BP 140/79
[2022-10-02 05:25] LABS: Hematocrit 41.5 % (37.0-53.0); Hemoglobin 13.4 g/dL (13.5-17.5); Mean Corpuscular HGB 28.7 pg (26.0-34.0); Mean Corpuscular HGB Conc 32.3 g/dL (31.5-36.5); Mean Corpuscular Volume 89 fL (80-100); Mean Platelet Volume 9.3 fL (9.1-12.4); Platelet Count 123 K/mm3 (150-400); RDW Coefficient Variation 14.2 % (11.7-14.2); RDW Standard Deviation 45.9 fL (35.1-46.3); Red Blood Cell Count 4.67 M/mm3 (4.30-5.90); White Blood Cell Count 3.91 K/mm3 (4.00-11.30)
--- NOTE | 2022-10-02 05:47 | NUR ---
SHIFT SUMMARY 76 YR M ADMITTED ON 10/01/22 FOR AFIB W/ RVR. FULL CODE. PER HOG CONFINEMENT SYSTEM MANAGER RATE AND RYTHM WERE AFIB @ 100 AT TIME OF ADMITTANCE. AT ONE POINT IN THE SHIFT HOG CONFINEMENT SYSTEM MANAGER REPORTED A 9 BEAT RUN OF VTAC, BUT NO OTHER ADVERSE EVENTS THIS SHIFT. PT IS PLEASANT AND COOPERATIVE W/ CARE. HIS GIRLFRIEND HAS BEEN AT BEDSIDE ALL NIGHT. HE USES THE BEDSIDE URINAL INDEPENDANTLY. HE STATED THAT HE HAS BEEN NON COMPLIANT W/ CARDIAC MEDS BUT THAT HE INTENDS TO START TAKING THEM REGULARLY AGAIN.
[2022-10-02 06:01] LABS: Calcium, Blood 9.1 mg/dL (8.5-10.1); Creatinine, Blood 0.87 mg/dL (0.60-1.20)
[2022-10-02 07:54] VITALS: BP 148/88
[2022-10-02 08:15] LABS: SARS-Cov-2 (COVID-19) PCR, MMC NEGATIVE (NEGATIVE)
--- NOTE | 2022-10-02 08:20 | NUR ---
CALL TO DR. NICK REPORTING PT'S HR=44 AND A RECHECK HR OF 50. RN ASKED IF METOPROLOL NEEDS TO BE HELD FOR THE MORNING. MD GAVE VERBAL TO HOLD METOPROLOL 25MG THIS AM.
[2022-10-02] MEDS ORDERED: TORSE20 PO (12:55)
--- NOTE | 2022-10-02 15:45 | NUR ---
DC- PT LEFT VIA TAXI SERVICE IN STABLE CONDITION WITH ALL BELONGINGS. PT EDUCATED ON DC PAPERWORK AND RN EMPHASIZED NEW MED TO PROJECT MANAGER/TEAM COACH, STOPPING APPROPRIATE MEDS, AND BEING COMPLIANT WITH MED ADMINISTRATION. PT VERBALIZED UNDERSTANDING OF ALL EDUCATION. RN ANSWERED ALL QUESTIONS. PT LEFT IN A TAXI PER PT'S REQUEST.
== END 2022-10-02 15:42 | disposition home or self-care (01) ==
LOC: ER 16:41 → MEDS 20:10
PROVIDERS: Nurse Practitioner Acute Care; Student in an Organized Health Care Education/Training Program; ADMIT Internal Medicine
DX: I48.91 Unspecified atrial fibrillation (principal); I50.21 Acute systolic (congestive) heart failure; I11.0 Hypertensive heart disease with heart failure; F11.20 Opioid dependence, uncomplicated; Z20.822 Contact with and (suspected) exposure to COVID-19
CPT/HCPCS: 36415; 71045; 80048; 80053; 83880; 84484; 85025; 85027; 93005; 93010; 96374; 96375; 96376; 99285-25; A9270; G0378; J1940; U0002

== ENCOUNTER 2022-11-13 11:24 | Emergency (ER) | payer MEDICARE ==
[~2022-11-13] VITALS: Ht 182.9 cm; Wt 93.0 kg
[~2022-11-13 11:24] MED LIST changes: +TORSE20 PO
[2022-11-13 12:24] LABS: BASOPHILS ABSOLUTE AUTO 0.02 K/mm3 (0.00-0.23); BASOPHILS PERCENT AUTO 1 % (0-2); EOSINOPHILS ABSOLUTE AUTO 0.09 K/mm3 (0.00-0.68); EOSINOPHILS PERCENT AUTO 2 % (0-6); Hematocrit 42.3 % (37.0-53.0); Hemoglobin 13.7 g/dL (13.5-17.5); IMMATURE GRAN ABSOLUTE AUTO 0.01 K/mm3 (0.00-0.10); IMMATURE GRAN PERCENT AUTO 0 % (0-1); LYMPHOCYTES ABSOLUTE AUTO 1.23 K/mm3 (0.84-5.20); LYMPHOCYTES PERCENT AUTO 32 % (21-46); MONOCYTES ABSOLUTE AUTO 0.39 K/mm3 (0.16-1.47); MONOCYTES PERCENT AUTO 10 % (4-13); Mean Corpuscular HGB Conc 32.4 g/dL (31.5-36.5); Mean Corpuscular Volume 90 fL (80-100); Mean Platelet Volume 9.7 fL (9.1-12.4); NEUTROPHILS ABSOLUTE AUTO 2.15 K/mm3 (1.96-9.15); NEUTROPHILS PERCENT AUTO 55 % (41-73); Platelet Count 143 K/mm3 (150-400); RDW Coefficient Variation 15.2 % (11.7-14.2); RDW Standard Deviation 49.3 fL (35.1-46.3); Red Blood Cell Count 4.72 M/mm3 (4.30-5.90); White Blood Cell Count 3.89 K/mm3 (4.00-11.30)
[2022-11-13 12:58] LABS: Albumin, Blood 3.8 g/dL (3.4-5.0); Albumin/Globulin Ratio 1.2 (0.8-1.8); Bilirubin, Total 1.1 mg/dL (0.1-1.0); Bun/Creatinine Ratio 30.5 (12.0-20.0); Calcium, Blood 9.2 mg/dL (8.5-10.1); Creatinine, Blood 0.95 mg/dL (0.60-1.20); Globulin, Blood 3.3 g/dL (2.2-4.0); Potassium, Blood 4.6 mmol/L (3.5-5.5); Total Protein, Blood 7.1 g/dL (6.4-8.2)
[2022-11-13] MEDS ORDERED: ELIQUIS2.5 MG PO ×2 (15:15→16:11)
[2022-11-13] MEDS ORDERED: FURO40 PO ×2 (15:15→16:11)
[2022-11-13] MEDS ORDERED: METO25 PO (16:11)
[2022-11-13] MEDS ORDERED: MORP30ER PO (16:11)
[2022-11-13] MEDS ORDERED: GUAI200 PO (16:11)
[2022-11-13] MEDS ORDERED: MELATONIN5 M1 PO (16:11)
[2022-11-13] MEDS ORDERED: SPIR25 PO (16:11)
[2022-11-13] MEDS ORDERED: HYDACE10B PO (16:11)
[2022-11-13 16:37] VITALS: BP 149/93
== END 2022-11-13 16:50 | disposition home or self-care (01) ==
LOC: ER 11:24
PROVIDERS: Physician Assistant
DX: I11.0 Hypertensive heart disease with heart failure (principal); I50.9 Heart failure, unspecified; M79.604 Pain in right leg; M79.605 Pain in left leg; G89.29 Other chronic pain; J81.1 Chronic pulmonary edema; I48.0 Paroxysmal atrial fibrillation; I48.92 Unspecified atrial flutter; Z76.0 Encounter for issue of repeat prescription; Z79.01 Long term (current) use of anticoagulants; Z79.899 Other long term (current) drug therapy
CPT/HCPCS: 71046; 80053; 83880; 85025; 93005; 93010; 96374; 99284-25; A9270; J1940

== ENCOUNTER 2023-01-27 03:34 | Inpatient (IN) | payer OTHER ==
[~2023-01-27] VITALS: Ht 182.9 cm; Wt 117.9 kg
[2023-01-27] VITALS (35 sets, daily range): BP systolic 63–191; BP diastolic 45–117
[~2023-01-27 03:34] MED LIST changes: +ELIQUIS2.5 MG PO
[2023-01-27 03:45] LABS: Chloride (POC) 107 mmol/L (98-108); Creatinine (POC) 4.2 mg/dL (0.8-1.3); Glucose (ISTAT POC) < 20 mg/dL (70-99); Potassium (POC) 7.1 mmol/L (3.5-5.5); Sodium (POC) 129 mmol/L (135-148); Total CO2 (POC) 12 mmol/L (21-32)
[2023-01-27 04:16] LABS: Source, Urine Foley catheter
[2023-01-27 04:20] LABS: Hematocrit 44.3 % (37.0-53.0); Hemoglobin 13.2 g/dL (13.5-17.5); Mean Corpuscular HGB 31.1 pg (26.0-34.0); Mean Corpuscular HGB Conc 29.8 g/dL (31.5-36.5); Mean Corpuscular Volume 105 fL (80-100); NRBC ABSOLUTE 0.47 K/mm3 (0.00-0.02); NRBC Auto 2.8 /100 WBC (0.0-0.2); RDW Coefficient Variation 16.9 % (11.7-14.2); RDW Standard Deviation 63.7 fL (35.1-46.3); Red Blood Cell Count 4.24 M/mm3 (4.30-5.90); White Blood Cell Count 17.03 K/mm3 (4.00-11.30)
[2023-01-27 04:23] LABS: Blood, Urine 1+ (Neg); Glucose Qualitative, Urine Neg (Neg); Ketones, Urine 1+ (Neg); Leukocyte Esterase, Urine 1+ (Neg); Nitrite, Urine Neg (Neg); Protein, Urine 3+ (Neg); Urobilinogen, Urine 2+ (Normal)
[2023-01-27 04:25] LABS: PCO2 Arterial 36.5 mmHg (35-45); PO2 Arterial 209 mmHg (80-100); pH Blood Arterial 6.87 (7.35-7.45)
[2023-01-27 04:26] LABS: Platelet Count 35 K/mm3 (150-400)
[2023-01-27 04:30] LABS: Calcium, Ionized (POC) 0.96 mmol/L (1.10-1.46); Chloride (POC) 103 mmol/L (98-108); Creatinine (POC) 3.8 mg/dL (0.8-1.3); Glucose (ISTAT POC) 224 mg/dL (70-99); Hemoglobin (POC) 12.6 g/dL (13.5-17.5); Potassium (POC) 5.6 mmol/L (3.5-5.5); Sodium (POC) 131 mmol/L (135-148); Total CO2 (POC) 12 mmol/L (21-32)
[2023-01-27 04:32] LABS: Appearance, Urine Hazy (Clear); Bilirubin, Urine 2+ (Neg); Color, Urine Amber (P-Yellow)
[2023-01-27 04:33] LABS: Amorphous Mod (0-Heavy); Bacteria Mod /hpf; Hyaline Casts TNTC /lpf (0-2); Mucus Mod (0-Heavy); Red Blood Cells, Urine 0-2 /hpf (0-2); Squamous Epithelial Cells Rare /hpf (Few); Transitional Epithelial Cells Few /hpf (0-Rare)
[2023-01-27 04:43] LABS: Magnesium, Blood 2.7 mg/dL (1.6-2.4)
[2023-01-27 04:44] LABS: U Amphetamine Screen DETECTED; U Barbituate Screen Not Detected; U Benzodiazapine Screen Not Detected; U Buprenorphine Screen Not Detected; U Cannabinoids Screen Not Detected; U Cocaine Screen Not Detected; U Methadone Screen Not Detected; U Methamphetamine Screen DETECTED; U Opiates Screen DETECTED; U Oxycodone Screen Not Detected; U Phencyclidine Screen Not Detected
[2023-01-27 04:54] LABS: Albumin, Blood 2.2 g/dL (3.4-5.0); Bilirubin, Total 2.4 mg/dL (0.1-1.0); Bun/Creatinine Ratio 15.6 (12.0-20.0); Calcium, Blood 8.5 mg/dL (8.5-10.1); Creatinine, Blood 3.53 mg/dL (0.60-1.20); Globulin, Blood 2.3 g/dL (2.2-4.0); Potassium, Blood 5.5 mmol/L (3.5-5.5); Total Protein, Blood 4.5 g/dL (6.4-8.2)
[2023-01-27 05:02] LABS: BAND PERCENT MAN 8 % (0-8); BASOPHILS PERCENT MAN 0 % (0-2); EOSINOPHILS ABSOLUTE MAN 0.17 K/mm3 (0.00-0.68); EOSINOPHILS PERCENT MAN 1 % (0-6); LYMPHOCYTES % ATYPICAL MANUAL 1 % (0-0); LYMPHOCYTES ABSOLUTE MAN 2.55 K/mm3 (0.84-5.20); LYMPHOCYTES PERCENT MAN 14 % (21-46); METAMYELOCYTE ABSOLUTE MAN 0.17 K/mm3 (0.00-0.00); METAMYELOCYTE PERCENT MAN 1 % (0-0); MONOCYTES ABSOLUTE MAN 0.51 K/mm3 (0.16-1.47); MONOCYTES PERCENT MAN 3 % (4-13); MYELOCYTE ABSOLUTE MAN 0.17 K/mm3 (0.00-0.00); MYELOCYTE PERCENT MAN 1 % (0-0); NEUTROPHILS ABSOLUTE MAN 13.45 K/mm3 (1.96-9.15); SEG NEUTROPHILS PERCENT MAN 71 % (41-73); TOTAL CELLS COUNTED 100
[2023-01-27 06:25] LABS: BASOPHILS ABSOLUTE AUTO 0.08 K/mm3 (0.00-0.23); BASOPHILS PERCENT AUTO 0 % (0-2); EOSINOPHILS ABSOLUTE AUTO 0.01 K/mm3 (0.00-0.68); EOSINOPHILS PERCENT AUTO 0 % (0-6); Hematocrit 44.2 % (37.0-53.0); Hemoglobin 13.1 g/dL (13.5-17.5); IMMATURE GRAN ABSOLUTE AUTO 0.42 K/mm3 (0.00-0.10); IMMATURE GRAN PERCENT AUTO 2 % (0-1); LYMPHOCYTES ABSOLUTE AUTO 1.56 K/mm3 (0.84-5.20); LYMPHOCYTES PERCENT AUTO 9 % (21-46); MONOCYTES ABSOLUTE AUTO 0.81 K/mm3 (0.16-1.47); MONOCYTES PERCENT AUTO 4 % (4-13); Mean Corpuscular HGB 30.9 pg (26.0-34.0); Mean Corpuscular HGB Conc 29.6 g/dL (31.5-36.5); Mean Corpuscular Volume 104 fL (80-100); Mean Platelet Volume 10.6 fL (9.1-12.4); NEUTROPHILS ABSOLUTE AUTO 15.49 K/mm3 (1.96-9.15); NEUTROPHILS PERCENT AUTO 84 % (41-73); NRBC ABSOLUTE 0.37 K/mm3 (0.00-0.02); RDW Standard Deviation 63.7 fL (35.1-46.3); Red Blood Cell Count 4.24 M/mm3 (4.30-5.90); White Blood Cell Count 18.37 K/mm3 (4.00-11.30)
--- NOTE | 2023-01-27 06:27 | NUR ---
PT ADMITTED TO ICU FROM ED. PT ARRIVES ON LEVOPHED INFUSING 1MCG/MIN, BICARB INFUSING 150ML/HR. RT MANAGING VENTILATOR WITH SPO2 AT 100, SEE RT CHARTING FOR VENT SETTINGS. PT NOT RESTRAINED CURRENTLY WITH NEURO RESPONSE. TEMP CARTER IN PLACE WITH TEMP OF 88.9 DEGREES, BEAR HUGGER IN PLACE. lEFT FEMORAL LINE PLACED IN ED AND OOZING WITH DRAINAGE NOTED AND 5LB SAND BAG IN PLACE. OG TO LIS WITH COFFEE GROUND CONTENTS. EPI GTT ADDED PER DR. MOORE AND INFUSING. SEE ICU FLOWSHEET FOR ALL MED TITRATIONS. CT RESULTS REPORTED TO DR. MOORE.
[2023-01-27 06:38] LABS: Platelet Count 43 K/mm3 (150-400)
[2023-01-27 07:01] LABS: PCO2 Arterial 44.3 mmHg (35-45); PO2 Arterial 102 mmHg (80-100); pH Blood Arterial 6.89 (7.35-7.45)
[2023-01-27 07:07] LABS: Thyroid Stimulating Hormone 22.2 uIU/mL (0.360-4.800)
[2023-01-27 07:23] LABS: Albumin, Blood 2.3 g/dL (3.4-5.0); Bilirubin, Total 2.7 mg/dL (0.1-1.0); Bun/Creatinine Ratio 15.4 (12.0-20.0); Calcium, Blood 7.8 mg/dL (8.5-10.1); Creatinine, Blood 3.64 mg/dL (0.60-1.20); Globulin, Blood 2.3 g/dL (2.2-4.0); Phosphorus, Blood 10.6 mg/dL (2.5-4.9); Potassium, Blood 5.1 mmol/L (3.5-5.5); Total Protein, Blood 4.6 g/dL (6.4-8.2)
--- NOTE | 2023-01-27 07:40 | NUR ---
DR. SMITH CALLED AND INFORMED OF ABG RESULTS, LACTIC ACID 15.5 FROM 14.7, PLATELETS OF 43 AND TROPONIN OF 165. INFORMED THAT SODIUM BICARB CURRENTLY INFUSING AT 75 MLS/ HOUR. INFORMED THAT AC CHANGED FROM 16 TO 22, TV 500, PEEP 5 AND FIO2 CHANGED FROM 100% TO 80%. ORDERED TO GIVE AMP OF BICARB, INCREASE BICARB DRIP TO 150 MLS/ HOUR FROM 75 MLS/ HOUR, AND TO HAVE ECHO PERFORMED STAT. STATED HE WILL BE IN SOON.
--- NOTE | 2023-01-27 07:46 | NUR ---
INITIAL ASSESSMENT PATIENT NOT ON SEDATION IS UNRESPONSIVE. NO RESPONSE TO NOXIOUS STIMULI. NO SIGNS OF PAIN OR DISTRESS NOTED. PATIENT HAS ROZINA HUGGER IN PLACE TO HELP BRING UP TEMPERATURE WHICH IS CURRENTLY AT 89.0 DEGREES FAHRENHEIT. PATIENT ON ACVC 22, TV 500, PEEP 5 AND FIO2 DECREASED FROM 100 TO 80%. LUNGS COARSE THROUGHOUT. PATIENT BREATHING AGONALLY ON VENT. PATIENT SR WITH BBB, HR IN THE 60S. SBP 90S TO LOW 100S. PATIENT ON EPINEPHRINE AT 8 MCG/ MINUTE AND LEVOPHED AT 18 MCG/ MINUTE. RADIAL, TIBIAL AND PEDAL PULSES ALL DOPPLER. CAP REFILL IN FEET GREATER THAN 3 SECONDS. ABD MODERATELY DISTENDED, FIRM, WITH HYPOACTIVE BOWEL SOUNDS NOTED. OG TO LIS DRAINING DARK RED LIQUID. TEMP CARTER DRAINING MINIMAL RONEN COLORED URINE. SKIN DUSKY, COOL. LEGS, FEET, ARMS, HANDS ALL DARK PURPLE IN COLOR. SCATTERED BRUISES TO UPPER EXTREMITIES. SCAB NOTED TO L THIGH. SKIN TEAR NOTED TO L ARM. EARS PURPLE IN COLOR. SODIUM BICARB INFUSING AT 150 MLS/ HOUR. IOS TO BILAT SHINS. PERIPHERAL IV TO L ARM- DRAWS BLOOD AND FLUSHED WELL. LEFT EJ DRAWS BLOOD AND FLUSHES WELL. BED LOW. CARE CONTINUES.
--- NOTE | 2023-01-27 09:00 | NUR ---
0834- PATIENT BRADIED DOWN AND LOST PULSE. CPR INITIATED. FAMILY LEFT ROOM. 0837- 1 MG EPINEPHRINE ADMINISTERED. 0838- PULSE CHECK. FEMORAL PULSE PALPATED. HR IN THE 60S. SBP 150S. EPINEPRHINE INCREASED FROM 8 TO 12 MCG/ MINUTE. LEVOPHED AT 18 MCG/ MINUTE. 0840- FAMILY BROUGHT BACK TO ROOM TO SPEAK WITH DR. ORDONEZ, DR. SMITH, AND PALLIATIVE CARE NURSE. 0850- FAMILY HAS DECIDED TO MAKE PATIENT COMFORT CARE AFTER SPEAKING WITH DOCTORS AND PALLIATIVE CARE NURSE. WAITING FOR ALL FAMILY TO GET BACK TO EXTUBATE AND STOP LEVOPHED AND EPINEPHRINE.
[2023-01-27 09:19] LABS: Prothrombin Time Results 55.3 Sec (9.7-11.5)
[2023-01-27 09:22] LABS: International Normalized Ratio 5.89
--- NOTE | 2023-01-27 09:22 | NUR ---
Pt resting in bed, intubated and non responsive. Pt's granddaughter Sanjana at bedside. Reviewed plan of care and engaged in therapeutic conversation regarding code status. Pt starts to decompensate quickly and team arrives and starts CPR again. SROC achieved. Other family members arrive. This RN, Dr Melendez, Dr Lebron discuss with family prognosis and goals of care including considering comfort care. Family is agreeable with placing Pt on comfort care but would like to wait until Pt's girlfriend can be reach. Placed comfort care order, comfort care order set, and Extubation order per V/O from Dr Melenedz. Palliative Care will F/U when rest of family arrives.
--- NOTE | 2023-01-27 09:50 | NUR ---
0925- ALL FAMILY HERE AT PATIENT BEDSIDE. FAMILY EDUCATED ON EXTUBATION PROCEDURE AND THAT CAN EITHER STAY IN THE ROOM OR STEP OUT WHILE EXTUBATING PATIENT. 2 MEMBERS OF FAMILY LEFT ROOM TO WAIT OUTSIDE. 0936- PATIENT MEDICATED AND EXTUBATED. 2 L NC PLACED ON PATIENT. REST OF FAMILY BACK INTO ROOM. 0938- ALL IV DRIPS TURNED OFF. FAMILY AT BEDSIDE WITH SPIRITUAL CARE. 0945- TIME OF CALLED BY THIS NURSE AND MELODIE CASTANEDA.
--- NOTE | 2023-01-27 09:55 | NUR ---
F/U visit. Arrived to room and Pt has . Data Control Assistant Nigel and bedside offering spiritual support. This RN offered condolences. Family appears to be grieving appropriately. Palliative Care will remain available
--- NOTE | 2023-01-27 10:00 | NUR ---
"Spiritual Care Callback | [facility] ([facility]) Pt. is on comfort care measures and awaiting for family and girlfriend to visit. Prayed with family when I arrived. Once everyone arrived we gathered at bedside and Prayed over the Pt. and scripture is read. Before extubation some family members left the hosptial. Pt. passed soon after extubation. After Pt. paloma, the nurse gave the Pts. two rings to the Pts. granddaughter. Cathy has chosen [facility] for the home. Granddaughter verbalized gratitude for all of the staff attending the Pt."
--- NOTE | 2023-01-27 11:50 | NUR ---
PATIENT REMOVED FROM UNIT AND TAKEN BY [facility]. DISCHARGE COMPLETE.
== END 2023-01-27 11:49 | DRG 291 ==
LOC: ER 03:34 → ICUE 05:19
PROVIDERS: Emergency Medicine; Family Medicine; ADMIT Student in an Organized Health Care Education/Training Program
PROC: 06HY33Z Insertion of Infusion Device into Lower Vein, Percutaneous Approach (ICD-10-PCS; principal; 2023-01-27)
PROC: 5A12012 Performance of Cardiac Output, Single, Manual (ICD-10-PCS; 2023-01-27)
PROC: 5A1935Z Respiratory Ventilation, Less than 24 Consecutive Hours (ICD-10-PCS; 2023-01-27)
PROC: 0BH17EZ Insertion of Endotracheal Airway into Trachea, Via Natural or Artificial Opening (ICD-10-PCS; 2023-01-27)
PROC: 0T9B70Z Drainage of Bladder with Drainage Device, Via Natural or Artificial Opening (ICD-10-PCS; 2023-01-27)
PROC: 4A133R1 Monitoring of Arterial Saturation, Peripheral, Percutaneous Approach (ICD-10-PCS; 2023-01-27)
PROC: 3E043XZ Introduction of Vasopressor into Central Vein, Percutaneous Approach (ICD-10-PCS; 2023-01-27)
DX: I13.0 Hypertensive heart and chronic kidney disease with heart failure and stage 1 through stage 4 chronic kidney disease, or unspecified chronic kidney disease (principal); G92.8 Other toxic encephalopathy; I50.23 Acute on chronic systolic (congestive) heart failure; I62.00 Nontraumatic subdural hemorrhage, unspecified; K72.00 Acute and subacute hepatic failure without coma; J96.00 Acute respiratory failure, unspecified whether with hypoxia or hypercapnia; J18.9 Pneumonia, unspecified organism; E87.20 Acidosis, unspecified; I48.92 Unspecified atrial flutter; N17.9 Acute kidney failure, unspecified; R18.8 Other ascites; M62.82 Rhabdomyolysis; I24.89 Other forms of acute ischemic heart disease; D68.9 Coagulation defect, unspecified; E87.1 Hypo-osmolality and hyponatremia; K92.2 Gastrointestinal hemorrhage, unspecified; Z66 Do not resuscitate; R57.0 Cardiogenic shock; E03.9 Hypothyroidism, unspecified; Z51.5 Encounter for palliative care; G89.29 Other chronic pain; M54.50 Low back pain, unspecified; I35.0 Nonrheumatic aortic (valve) stenosis; I48.0 Paroxysmal atrial fibrillation; I46.2 Cardiac arrest due to underlying cardiac condition; Z96.643 Presence of artificial hip joint, bilateral; D69.6 Thrombocytopenia, unspecified; E16.2 Hypoglycemia, unspecified; T68.XXXA Hypothermia, initial encounter; E87.5 Hyperkalemia; B95.61 Methicillin susceptible Staphylococcus aureus infection as the cause of diseases classified elsewhere; N18.9 Chronic kidney disease, unspecified; I46.9 Cardiac arrest, cause unspecified; Y90.0 Blood alcohol level of less than 20 mg/100 ml; Z79.01 Long term (current) use of anticoagulants; Z79.899 Other long term (current) drug therapy; Z79.891 Long term (current) use of opiate analgesic
CPT/HCPCS: 36415; 36556; 36600; 36680; 51702; 70450; 71045; 71250; 72125; 74176; 76770; 80047; 80053; 81001; 82550; 82803; 82947; 83605; 83735; 83880; 84100; 84145; 84443; 84484; 85014; 85025; 85610; 87040; 87070; 87076; 87086; 87205; 92950; 93005; 93010; 93306; 94002; 94644; 94664; 96374; 99291-25; A9270; C9113; J0171; J0461; J1815; J2543; J3010; J3370; J7050; J7060; J7070